=== PATIENT | male | born 1960 | race Caucasian/White ===

== ENCOUNTER 2016-06-06 01:30 | Inpatient (IN) | payer MEDICARE, OTHER ==
[~2016-06-06 01:30] MED LIST: ACULAR 0.5% OP S5 ML OU; ALPRAZOLAM0.5 MG GT; CARAFATE1 GM/10 ML GT; CARBIDOPA-LEVO1 EAC1 GT; CEFTIN500 MG PO; CELEXA20 MG GT; MIRALAX PACK 171 PKT GT; MIRAPEX0.5 MG GT; NEURONTIN 300300 MG GT; NEURONTIN 300300 MG PO; OSMOLITE 1.51000 ML GT; PERCOCET 10-321 EACH GT; PROTONIX 40 MG40 MG GT; ROBINUL TAB 1 MG1 MG GT; TIZANIDINE HCL2 MG GT; TRAZODONE HCL150 MG GT; XANAX0.5 MG GT; XYLOCAINE 2% BLADIN; ZOFRAN ODT 4 MG4 MG GT
[2016-06-06 02:02] LABS: HEMOGLOBIN 15.3 gm/dl (14.0-17.5); RED BLOOD COUNT 4.62 M/UL (4.20-5.50); WHITE BLOOD COUNT 9.4 K/UL (4.5-11.0)
[2016-06-06 02:22] LABS: BUN/CREATININE RATIO 23 (0-10)
[2016-06-06 06:04] LABS: BUN/CREATININE RATIO 28 (0-10)
[2016-06-06] MEDS ORDERED: CLARITIN10 MG PO (12:58)
[2016-06-06] MEDS ORDERED: LACTULOSE10 GM/15 M GT (13:01)
[2016-06-06] MEDS ORDERED: VENTOLIN/PROVE0.5 ML INH (13:11)
[2016-06-07 04:53] LABS: HEMOGLOBIN 11.9 gm/dl (14.0-17.5); RED BLOOD COUNT 3.65 M/UL (4.20-5.50); WHITE BLOOD COUNT 6.6 K/UL (4.5-11.0)
[2016-06-07 04:57] LABS: BUN/CREATININE RATIO 18 (0-10)
[2016-06-08 03:26] LABS: HEMOGLOBIN 12.2 gm/dl (14.0-17.5); RED BLOOD COUNT 3.72 M/UL (4.20-5.50); WHITE BLOOD COUNT 5.2 K/UL (4.5-11.0)
[2016-06-08 04:00] LABS: BUN/CREATININE RATIO 13 (0-10)
[2016-06-09 05:53] LABS: HEMOGLOBIN 13.5 gm/dl (14.0-17.5); WHITE BLOOD COUNT 5.5 K/UL (4.5-11.0)
[2016-06-09 05:59] LABS: RED BLOOD COUNT 4.12 M/UL (4.20-5.50)
[2016-06-09 06:13] LABS: BUN/CREATININE RATIO 23 (0-10)
[2016-06-10 03:35] LABS: RED BLOOD COUNT 4.24 M/UL (4.20-5.50); WHITE BLOOD COUNT 5.8 K/UL (4.5-11.0)
[2016-06-10 03:56] LABS: BUN/CREATININE RATIO 20 (0-10)
[2016-06-11 03:37] LABS: HEMOGLOBIN 13.3 gm/dl (14.0-17.5); RED BLOOD COUNT 4.04 M/UL (4.20-5.50); WHITE BLOOD COUNT 6.5 K/UL (4.5-11.0)
[2016-06-11 04:03] LABS: BUN/CREATININE RATIO 33 (0-10)
[2016-06-12 03:59] LABS: BUN/CREATININE RATIO 50 (0-10)
[2016-06-13 03:40] LABS: HEMOGLOBIN 11.5 gm/dl (14.0-17.5); WHITE BLOOD COUNT 5.7 K/UL (4.5-11.0)
[2016-06-13 03:41] LABS: RED BLOOD COUNT 3.56 M/UL (4.20-5.50)
[2016-06-13 03:55] LABS: BUN/CREATININE RATIO 53 (0-10)
[2016-06-14] MEDS ORDERED: OMNICEF 300 MG300 MG GT (15:35)
[2016-06-14] MEDS ORDERED: PROAMATINE 2.52.5 MG GT (15:36)
== END 2016-06-14 18:00 | disposition home health service (06) | DRG 698 ==
LOC: ER1 01:30 → CCU 03:34 → ZEROF 03:34 → CCU 15:50 → MED SURG 4 06-13 13:18
PROVIDERS: Hospitalist; Internal Medicine; Specialist/Technologist Athletic Trainer; ADMIT Internal Medicine
PROC: 0D20XUZ Change Feeding Device in Upper Intestinal Tract, External Approach (ICD-10-PCS; principal; 2016-06-07)
DX: T83.511A Infection and inflammatory reaction due to indwelling urethral catheter, initial encounter (principal); J18.9 Pneumonia, unspecified organism; J96.21 Acute and chronic respiratory failure with hypoxia; N30.00 Acute cystitis without hematuria; G90.3 Multi-system degeneration of the autonomic nervous system; K94.23 Gastrostomy malfunction; J98.11 Atelectasis; Y73.1 Therapeutic (nonsurgical) and rehabilitative gastroenterology and urology devices associated with adverse incidents; B96.20 Unspecified Escherichia coli [E. coli] as the cause of diseases classified elsewhere; Z16.23 Resistance to quinolones and fluoroquinolones; I10 Essential (primary) hypertension; Y83.3 Surgical operation with formation of external stoma as the cause of abnormal reaction of the patient, or of later complication, without mention of misadventure at the time of the procedure; Y73.2 Prosthetic and other implants, materials and accessory gastroenterology and urology devices associated with adverse incidents; L89.151 Pressure ulcer of sacral region, stage 1; E87.6 Hypokalemia; I27.2 Other secondary pulmonary hypertension; R13.10 Dysphagia, unspecified; M53.82 Other specified dorsopathies, cervical region; G89.4 Chronic pain syndrome; K59.09 Other constipation; M79.89 Other specified soft tissue disorders; Q66.89 Other specified congenital deformities of feet; F41.9 Anxiety disorder, unspecified; F32.9 Major depressive disorder, single episode, unspecified; Z87.891 Personal history of nicotine dependence; Z74.01 Bed confinement status; Z79.891 Long term (current) use of opiate analgesic; Z79.899 Other long term (current) drug therapy; Z88.5 Allergy status to narcotic agent; Z88.0 Allergy status to penicillin; Z98.890 Other specified postprocedural states; Z82.49 Family history of ischemic heart disease and other diseases of the circulatory system
CPT/HCPCS: ECHO; 36415; 36600; 71010; 73130; 80048; 80053; 80202; 81001; 82533; 82803; 83605; 83735; 84132; 85025; 85027; 87040; 87077; 87086; 87186; 92526; 92610; 93306; 93971; 94640; 96365; 96367; 97110; 97530; 99284; J0696; J1335; J1650; J1720; J1956; J2185; J2760; J3370; J7030; J7040; J7050; J7070